=== PATIENT | male | born 1985 | race Hispanic/Latino ===

== ENCOUNTER → 2016-05-21 | Day surgery (SDC) | payer OTHER ==
[~2016-05-21] VITALS: Ht 182.9 cm; Wt 99.8 kg
[~2016-05-21] MED LIST: BACITRACIN OINT 30GM As Ordered ONE; BACITRACIN OINT 30GM TOP ONE; BACT800T5 PO; BACTRIM 160MG/800MG DS TAB PO SCH; BUPIVACAINE HCL 0.25% 30 ML VIAL As Ordered ONE; BUPIVACAINE HCL 0.25% 30 ML VIAL XX ONE; GLYCOPYRROLATE INJ 0.2 MG/ML 2 ML VIAL As Ordered ONE; KETOROLAC 60 MG/2 ML VIAL (J1885) As Ordered ONE; LIDOCAINE 1% SDV INJ 30 ML VIAL As Ordered ONE; LIDOCAINE 1% SDV INJ 30 ML VIAL XX ONE; LIDOCAINE 2% INJ 100 MG/5 ML SDV (FOR ANES.) As Ordered ONE; LR 1,000 ML IV SCH; METOCLOPRAMIDE INJ 10MG/2ML VIAL (J2765) As Ordered ONE; MIDAZOLAM INJ 2 MG/2 ML VIAL (J2250) As Ordered ONE; NEOSTIGMINE 1MG/ML 5 ML SYRINGE (J2710) As Ordered ONE; NORCO, ANEXSIA 5/325MG TABLET (HYDROcodone/ACETAMINOPHEN) PO PRN; ONDANSETRON 4MG/2ML VIAL (J2405) As Ordered ONE; ONDANSETRON 4MG/2ML VIAL (J2405) IV PRN; PERCOCET 5MG/325MG TAB PO PRN; PERCOCET PO; PHENYLephrine HCL 500 MCG/5 ML (100MCG/ML) SYRINGE (J2370) As Ordered ONE; PRIL20CA9 PO; PROPOFOL 200 MG/20 ML VIAL As Ordered ONE; ROCURONIUM BROMIDE 50 MG/5 ML VIAL As Ordered ONE; SUCCINYLCHOLINE 100 MG/5 ML SYRINGE (J0330) As Ordered ONE; ePHEDrine SULFATE 25 MG/5 ML(5MG/ML) SYRINGE As Ordered ONE; fentaNYL 100 MCG/2 ML INJECTION (J3010) As Ordered ONE; fentaNYL 100 MCG/2 ML INJECTION (J3010) IV PRN
[2016-05-21 20:50] VITALS: BP 149/75
--- NOTE | 2016-05-22 08:40 | RO ---
DATE OF PROCEDURE: 05/21/2016 PREPROCEDURE DIAGNOSES: Phimosis and recurrent balanitis. POSTPROCEDURE DIAGNOSES: Phimosis and recurrent balanitis. FINDINGS: Phimosis and recurrent balanitis. PROCEDURE: Circumcision. SURGEON: Dr. Cooper Dugan. AUTOMOTIVE INSTRUCTOR: None. ANESTHESIA: General. COMPLICATIONS: None. ESTIMATED BLOOD LOSS: N/A. HISTORY OF PRESENT ILLNESS: 31-year-old male patient who has recurrent balanitis and difficulty retracting foreskin. For this reason, he has consented for a circumcision. PROCEDURE DESCRIPTION: With the patient in supine position under general anesthesia, after prepping and draping the area of concern which included the entire genitalia and penis, we actually started by doing a penile block on the base of the penis also with Marcaine 0.25% and lidocaine 1%, a total of 10 mL around the base of the penis. We then proceeded to do an incision 1 cm away from the sulcus of the glans, circumferential incision with a cold knife #15 blade. 4 cm proximal toward the base and away from the first circumferential incision, we did a second circumferential incision and the excised the foreskin between the two incisions with Bovie cautery. We fulgurated the bleeding vessels with Bovie cautery and then approximate both borders of foreskin with catgut chromic #3-0 in separate stitches. We then proceeded to place bacitracin cream around the wound, covered it with 4 x 4 and wrapped it with Coban. PLAN: The patient will go home today with antibiotic and pain medication. The specimen foreskin will be sent for permanent pathology analysis. He will followup in 3 days to remove the Coban. He cannot have sexual intercourse for 1 month. No physical activity for 1 week.
== END | disposition home or self-care (01) ==
LOC: M SDC 15:15
PROVIDERS: ATTEND Urology
DX: N47.1 Phimosis (principal); N48.1 Balanitis; N45.1 Epididymitis; Z88.1 Allergy status to other antibiotic agents
CPT/HCPCS: 54161; 88304; J0330; J0690; J1885; J2250; J2370; J2405; J2710; J2765; J3010

== ENCOUNTER → 2017-10-30 | Outpatient (CLI) | payer OTHER | LOC: M SMT 11:20 | DX: R94.2 Abnormal results of pulmonary function studies (principal) | CPT/HCPCS: 71046 ==

== ENCOUNTER → 2017-12-02 | Outpatient (CLI) | payer OTHER ==
[~2017-12-02] MED LIST changes: -BACITRACIN OINT 30GM As Ordered ONE; -BACITRACIN OINT 30GM TOP ONE; -BACT800T5 PO; -BACTRIM 160MG/800MG DS TAB PO SCH; -BUPIVACAINE HCL 0.25% 30 ML VIAL As Ordered ONE; -BUPIVACAINE HCL 0.25% 30 ML VIAL XX ONE; -GLYCOPYRROLATE INJ 0.2 MG/ML 2 ML VIAL As Ordered ONE; -KETOROLAC 60 MG/2 ML VIAL (J1885) As Ordered ONE; -LIDOCAINE 1% SDV INJ 30 ML VIAL As Ordered ONE; -LIDOCAINE 1% SDV INJ 30 ML VIAL XX ONE; -LIDOCAINE 2% INJ 100 MG/5 ML SDV (FOR ANES.) As Ordered ONE; -LR 1,000 ML IV SCH; +METHACHOLINE KIT (J7674) INH; -METOCLOPRAMIDE INJ 10MG/2ML VIAL (J2765) As Ordered ONE; -MIDAZOLAM INJ 2 MG/2 ML VIAL (J2250) As Ordered ONE; -NEOSTIGMINE 1MG/ML 5 ML SYRINGE (J2710) As Ordered ONE; -NORCO, ANEXSIA 5/325MG TABLET (HYDROcodone/ACETAMINOPHEN) PO PRN; -ONDANSETRON 4MG/2ML VIAL (J2405) As Ordered ONE; -ONDANSETRON 4MG/2ML VIAL (J2405) IV PRN; -PERCOCET 5MG/325MG TAB PO PRN; -PERCOCET PO; -PHENYLephrine HCL 500 MCG/5 ML (100MCG/ML) SYRINGE (J2370) As Ordered ONE; -PRIL20CA9 PO; -PROPOFOL 200 MG/20 ML VIAL As Ordered ONE; -ROCURONIUM BROMIDE 50 MG/5 ML VIAL As Ordered ONE; -SUCCINYLCHOLINE 100 MG/5 ML SYRINGE (J0330) As Ordered ONE; -ePHEDrine SULFATE 25 MG/5 ML(5MG/ML) SYRINGE As Ordered ONE; -fentaNYL 100 MCG/2 ML INJECTION (J3010) As Ordered ONE; -fentaNYL 100 MCG/2 ML INJECTION (J3010) IV PRN
== END ==
LOC: M CARPUL 08:38
DX: R94.2 Abnormal results of pulmonary function studies (principal)
CPT/HCPCS: J7674